=== PATIENT | female | born 1995 | race Caucasian/White ===

== ENCOUNTER 2017-09-22 00:14 | Emergency (ER) | payer OTHER ==
[~2017-09-22] VITALS: Ht 165.1 cm; Wt 76.7 kg
[2017-09-22 00:30] VITALS: BP 126/89; Ht 165.1 cm; Wt 76.7 kg
== END 2017-09-22 01:06 | disposition home or self-care (01) ==
LOC: ED 00:14
DX: O99.711 Diseases of the skin and subcutaneous tissue complicating pregnancy, first trimester (principal); Z3A.01 Less than 8 weeks gestation of pregnancy